=== PATIENT | male | born 2000 | race Caucasian/White ===

== ENCOUNTER 2021-09-28 16:45 | Emergency (ER) | payer OTHER, MEDICAID, SELFPAY ==
[2021-09-28 16:46] VITALS: BP 157/83; PULSE 78; RESP 18; TEMP 36.5; O2SAT 100; BMI 33.0
--- NOTE | 2021-09-28 16:53 | ED.RN ---
CALLED IN [facility] FOR DRUG SCREEN
--- NOTE | 2021-09-28 17:16 | EX.ED.VIS.EY ---
HPI History of Present Illness Chief Complaint: Eye Problem Informant: patient Onset/Context/Timing Location: Right Eye Onset: Today Context: Sudden Onset Timing: Continuous Worsened by: Nothing Relieved by: Cold water irrigation Associated Symptoms Associated Symptoms - Eyes: Burning, Pain and Redness; Negative for Crusting, Drainage, Eyelid swelling, Foreign body sensation, Itching, Matting and Photophobia History of injury: Yes Visual correction: Glasses Narrative Narrative: Patient presents with right eye injury that occurred today while at work. Patient states he was using a torch to cut bolts. Patient states that a piece of metal came off of the bolt and hit him below his right eye on the lower eyelid. Patient states that when he went to remove the piece of metal from his lower eyelid, he pushed it into his right eye. Patient states he irrigated his right eye after this and the foreign body came out. Patient states that he did lose the vision in his right eye for a few seconds after this. Patient states his vision is normal at the present time. Patient states he wears reading glasses at times. PFSH PFS Allergy/AdvReac Type Severity Reaction Status Date / Time No Known Allergies Allergy Verified 09/28/21 16:47 Surgical History (Updated 09/28/21 @ 17:[address] Ja Sood DO) History of tonsillectomy and adenoidectomy History of wisdom tooth extraction Social History Smoking Status: Current every day smoker tobacco type: e-cigarettes ROS ROS ED Constitutional Constitutional ED: Denies chills or fever(s) Eyes Eyes: Reports change in vision; Denies blurry vision ENT ENT ED: Denies rhinorrhea or sore throat Cardiovascular Cardiovascular: Denies chest pain or palpitations Respiratory/Chest Respiratory/Chest: Denies cough or dyspnea Gastrointestinal Gastrointestinal: Denies nausea or vomiting Genitourinary Genitourinary ED: Denies dysuria or hematuria Musculoskeletal Musculoskeletal: Denies back pain or neck pain Integumentary Denies abscess or rash Neurologic Neurologic: Denies headache(s) or weakness Allergic/Immunologic Allergic/Immunologic ED: Denies mouth swelling or urticaria EXAM Physical Exam Const Vital Signs: 09/28/21 16:46 Temperature 97.7 F L Temperature Source Temporal Pulse Rate 78 Respiratory Rate 18 Blood Pressure 157/83 H Blood Pressure Mean 107 Pulse Ox 100 Oxygen Delivery Method Room Air Positive well nourished and well developed General Appearance ED: well developed and NAD HEENT atraumatic Eyes Alignment: alignment normal Periorbital: periorbital findings abnormal right (There is some mild edema of the right lower eyelid. There is no erythema or warmth.) Conjunctiva: conjunctiva abnormal right injection diffuse Sclera: sclera normal Pupil: PERRL EOM: Negative for EOM abnormal Neck supple and no JVD Neuro oriented x3, CN's II-XII intact bilaterally, moves all extremities and no sensory deficits noted Sensorium / Orientation: alert Motor Exam: strength 5/5 throughout MDM MDM MDM Narrative Medical decision making narrative: Tetracaine and fluorescein dye was applied. There is the superficial corneal abrasion over the inferior medial aspect of the cornea. There are no foreign bodies noted. Patient was given erythromycin ophthalmic ointment. Patient was instructed to apply to his right eye 3 times a day. Patient was instructed to follow-up with the [facility] in 1 to 2 days. Patient understood and was agreeable with the plan. All questions were answered. Discharge Plan Triage Chief Complaint: Eye Problem ED Provider: Ja Sood Dx/Rx/DC Orders Clinical Impression: Corneal abrasion, right Instructions: ED Corneal Abrasion Primary Care Provider: Care Physician,No Primary Referrals: Care Physician,No Primary [Primary Care Provider] - [facility] [NON-STAFF] - 2 Days Disposition Disposition: Home, Self Care
[2021-09-28 18:33] VITALS: PULSE 65; RESP 16; O2SAT 100
[2021-09-28] MEDS: Fluorescein 1 MG STRIP 1 STRIP OPHTHALMIC (18:35)
[2021-09-28] MEDS: Tetracaine 0.5% Ophthalmic Bottle OPHTHALMIC (18:36)
== END 2021-09-28 18:39 | disposition home or self-care (01) ==
PROVIDERS: Emergency Provider Emergency Medicine; Visit Provider Emergency Medicine
DX: S05.01XA Injury of conjunctiva and corneal abrasion without foreign body, right eye, initial encounter (principal); W22.8XXA Striking against or struck by other objects, initial encounter; Y93.89 Activity, other specified; Y99.0 Civilian activity done for income or pay; F17.290 Nicotine dependence, other tobacco product, uncomplicated
CPT/HCPCS: 99283